=== PATIENT | female | born 1990 | race Caucasian/White ===

== ENCOUNTER 2016-04-26 08:56 | Observation (INO) | payer BC, OTHER ==
[2016-04-26] VITALS (18 sets, daily range): BP systolic 91–117; BP diastolic 54–85; PULSE 82–109; TEMP 36.5–37.7; O2SAT 96–100; Ht 172.7 cm; Wt 57.0 kg
[~2016-04-26] VITALS: Ht 172.7 cm; Wt 57.0 kg
[2016-04-26] MEDS ORDERED: ONDANSETRON INJ 2 MG/ML 2 ML VIAL IV STA (09:15)
[2016-04-26] MEDS ORDERED: SODIUM CHLORIDE 0.9% 1000ML 1,000 ML IV STA (09:15)
[2016-04-26] MEDS ORDERED: HYDROmorphone INJ 1 MG/ML SYR IV STA (09:15)
[2016-04-26 09:28] LABS: BASO % 0.1 %; BASO ABS # 0.01 K/uL (0-0.2); COMPLETE YES; HEMATOCRIT 29.4 % (37-47); IG% 0.2 %; LYMPH ABS # 0.97 K/uL (1.2-3.4); MEAN CELL VOLUME 81.7 fL (80-100); MEAN CORPUSCULAR HEMOGLOBIN 28.6 pg (25-34); MONO % 1.7 %; PLATELET COUNT 196 K/uL (130-400); WHITE BLOOD COUNT 9.68 K/uL (4.8-10.8)
[2016-04-26 09:46] LABS: BUN/CREATININE RATIO 21.3 (10-20); CALCIUM 8.5 mg/dl (8.5-10.1); CREATININE 0.68 mg/dl (0.60-1.20); POTASSIUM 4.1 mmol/L (3.5-5.1)
[2016-04-26 09:53] LABS: PREG INTERNAL NEGATIVE QC NEG CLEAR BACKGROUND; PREG INTERNAL POSITIVE QC POS CONTROL LINE
[2016-04-26 09:59] LABS: URINE APPEARANCE CLOUDY (CLEAR); URINE BILIRUBIN NEG (NEG); URINE COLOR DK YELLOW; URINE EPITHELIAL CELL AUTO >30 /lpf (0-5); URINE NITRITE NEG (NEG); URINE SPECIFIC GRAVITY 1.036 (1.000-1.030); UROBILINOGEN NEG (NEG)
[2016-04-26 10:04] LABS: MANUAL MICROSCOPIC REQUIRED? NO; REVIEW REQ? NO
[2016-04-26] MEDS ORDERED: MoRPHine SULFATE 4 MG/ML 1 ML CARP\\VIAL IV STA (10:33)
[2016-04-26] MEDS ORDERED: LACTATED RINGER'S 1000ML 1,000 ML IV SCH (10:47)
--- NOTE | 2016-04-26 10:52 | DIAGNOSTIC IMAGING REPORT ---
ULTRASOUND CLINICAL HISTORY: Diffuse abdominal pain. COMPARISON STUDY: No previous studies for comparison. TECHNIQUE: Transabdominal and transvaginal sonography of the pelvis was performed. FINDINGS: There is a moderate to large amount of complex fluid within the pelvis and the abdomen. The uterus measures 7.5 x 4.8 x 5 cm. There is complex fluid within the endometrial cavity. No intrauterine gestational sac is identified. The right ovary measures 2.7 x 2 x 2 cm. The left ovary is partially obscured on this exam, likely by clot. There is a 2.7 x 2.2 x 2.8 cm round focus within the left adnexa that is centrally cystic and peripherally echogenic. IMPRESSION: 1. Findings suggestive of a ruptured ectopic , likely within the left adnexa. Moderate to large amount of associated hemoperitoneum within the abdomen and pelvis. 2. Complex fluid within the endometrial cavity which suggests a pseudogestational sac. No intrauterine gestation identified. Findings discussed with Dr. Vizcarra at time of dictation. Electronically signed by: Kendall Wilkes M.D. 04/26/2016 10:50 AM Dictated Date/Time: 04/26/2016 10:44 AM
[2016-04-26] MEDS ORDERED: NEOSTIGMINE METHYLSULFATE 5 MG/5 ML SYR ONE (11:09)
[2016-04-26] MEDS ORDERED: GLYCOPYRROLATE INJ 0.2 MG/ML VIAL ONE (11:09)
[2016-04-26] MEDS ORDERED: ONDANSETRON INJ 2 MG/ML 2 ML VIAL ONE (11:09)
[2016-04-26] MEDS ORDERED: PROPOFOL IV EMULSION 10 MG/ML 20 ML VIAL IV ONE (11:09)
[2016-04-26] MEDS ORDERED: DEXAMETHASONE SOD INJ 4 MG/ML VIAL ONE (11:09)
[2016-04-26] MEDS ORDERED: ROCURONIUM BROMIDE 10 MG/ML 5 ML VIAL ONE (11:09)
[2016-04-26] MEDS ORDERED: MIDAZOLAM HCL 1 MG/ML 2ML VIAL ONE (11:09)
[2016-04-26] MEDS ORDERED: LIDOCAINE HCL 2% 2 ML VIAL (20MG/ML) ONE (11:09)
[2016-04-26] MEDS ORDERED: FENTANYL CITRATE INJ 50 MCG/1 ML 2 ML VIAL ONE ×2 (11:09→11:56)
[2016-04-26] MEDS ORDERED: CEFOXITIN IV 2,000 MG in DEXTROSE 5% 50ML 50 ML IV SCH (11:30)
--- NOTE | 2016-04-26 12:02 | HISTORY & PHYSICAL EXAMINATION ---
DATE OF ADMISSION: 04/26/2016 CHIEF COMPLAINT: Abdominal pain and vomiting. HISTORY OF PRESENT ILLNESS: The patient is a 25-year-old 4, para 2-0-1-2 with an LMP of 03/31/2016. Comes in to the Emergency Department with acute abdominal pain that began around 4:00 p.m. yesterday evening. Her pain continued overnight and she had vomiting early this morning. She ranked her pain at 7/10 on arrival. Her periods have been fairly regular beginning in January when she stopped . They were actively trying for a . She did begin spotting bright red blood yesterday, which was abnormal for her. She denies any recent fevers, chills, chest pain, shortness of breath. In the Emergency Department an ultrasound was completed, which showed blood within the abdomen and around the liver, with a possible ruptured ectopic from the left adnexa. No intrauterine gestational sac is identified. There is a 2.7 x 2.2 x 2.8 cm round focus within the left adnexa that is centrally cystic and peripherally echogenic. Her hCG level came back at 6173. Therefore, the patient will be taken to the operating room for a laparoscopic salpingectomy. Discussed the risks, benefits and alternatives to the procedure, and the patient agreed to proceed with surgery. PAST MEDICAL HISTORY: The patient denies any previous medical history. PAST SURGICAL HISTORY: She had 2 spontaneous vaginal deliveries. Her oldest child is 3-1/2 and her youngest child is 18 months. She had 1 spontaneous miscarriage her third . Last menstrual period is 03/31/2016. Her periods were regular every 28 days. SOCIAL HISTORY: The patient denies tobacco, alcohol or drug use. and lives with her family. ALLERGIES: No known drug allergies. MEDICATIONS: No medications. PHYSICAL EXAMINATION: VITAL SIGNS: Blood pressure is 105/67, heart rate of 98, respiration rate of 18, pulse ox of 100% on room air. GENERAL: The patient is awake, alert and oriented x3. She is in mild distress from the situation and her pain. HEENT: and her pain. HEART: Regular rate and rhythm. LUNGS: Clear to auscultation bilaterally. ABDOMEN: Tender to palpation, left greater than right. No guarding or rebound. Bowel sounds present x4. EXTREMITIES: No clubbing, cyanosis or calf tenderness. LABORATORY DATA: White blood count is 9.68, hemoglobin is 10.3, hematocrit 29.4, platelet count of 196. Sodium 139, potassium 4.1, chloride 105, bicarbonate 21, BUN 15, creatinine 0.68, glucose 139, calcium 8.5, AST 15, ALT 20, alkaline phosphatase 41, lipase of 83. HCG 6173. IMAGING: Pelvic ultrasound showed a moderate to large amount of complex fluid within the pelvis and the abdomen. The uterus measured 7.5 x 4.8 x 5 cm. There is complex fluid within the endometrial cavity. No intrauterine gestational sac is identified. The right ovary measures 2.7 x 2 x 2 cm. Left ovary is partially obscured on this exam, likely by a clot. There is a 2.7 x 2.2 x 2.8 cm round focus within the left adnexa that is centrally cystic and peripherally echogenic. IMPRESSION: 1. Findings suggestive of a ruptured ectopic , likely within the left adnexa, moderate to large amount of associated hemoperitoneum within the abdomen and pelvis. 2. Complex fluid within the endometrial cavity which suggests a pseudogestational sac. No intrauterine gestation identified. ASSESSMENT AND PLAN: The patient is a 25-year-old 4, para 2-0-1-2 at approximately 4 weeks gestation with an LMP of 03/31/2016 with a suspected ectopic . Will proceed with a laparoscopy with a possible unilateral salpingectomy, possible unilateral salpingo-oophorectomy, possible laparotomy. Discussed the risks, benefits and alternatives with the patient and informed consent has been obtained. DEONNA
--- NOTE | 2016-04-26 12:14 | EMERGENCY ROOM VISIT NOTE ---
History Report prepared by Saleem: Pat Finney Under the Supervision of: Dr. Philippe Vizcarra M.D. First contact with patient: 09:06 Chief Complaint: VOMITING Stated Complaint: VOMITING,STOMACH PAIN Nursing Triage Summary: Pt c/o n/v/d and "uterine cramping". Possibility of . History of Present Illness The patient is a 25 year old female who presents to the Emergency Room with complaints of cramping pains to her suprapubic abdomen, which began suddenly yesterday afternoon. Currently, she rates her discomfort as a 7/10, which she states becomes intermittently worse. Since the time of onset, the patient has also felt nauseous, and she vomited several times and passed multiple movements of diarrhea yesterday. She is still feeling nauseous, but she has not had any further episodes of vomiting or diarrhea today. The patient states that she and her were trying to get , but she has not yet followed up with OB , and she has not been taking any fertility medications. Her last menstrual cycle was March 29, which she states was normal for her at that time. She did begin spotting bright red blood yesterday, which is abnormal for her. Patient has been 3 times in the past. She has had two children without complications, and has had one miscarriage at 5 weeks . Patient denies recent fevers, chills, chest pain, shortness of breath, dysuria, hematuria, hematochezia or melena. Source of History: patient Onset: yesterday Position: other (suprapubic) Symptom Intensity: 7/10 Quality: other (cramping) Timing: other (sudden onset) Associated Symptoms: + abdominal pain, + diarrhea, + nausea, + vomiting, No SOB, No chest pain, No chills, No fevers, No hematochezia, No melena Review of Systems See HPI for pertinent positives & negatives. A total of 10 systems reviewed and were otherwise negative. Past Medical & Surgical Medical Problems: (1) Anemia associated with acute blood loss (2) Miscarriage (3) No known allergies Social History Smoking Status: Never Smoker Marital Status: Housing Status: lives with family Occupation Status: unemployed Current/Historical Medications Scheduled PRN Ibuprofen (Motrin), 600 MG PO Q6H PRN for Pain Oxycodone/Acetaminophen 5MG/325MG (Percocet 5MG/325MG), 1 TAB PO Q4H PRN for Pain (pain scale 1-5) Allergies Coded Allergies: No Known Allergies (Verified , 04/26/16) Physical Exam Vital Signs Date Time Temp Pulse Resp B/P Pulse Ox O2 Delivery O2 Flow Rate FiO2 04/26/16 13:38 93/52 04/26/16 13:37 72 17 04/26/16 13:37 72 17 99 04/26/16 13:33 90/53 04/26/16 13:32 69 21 04/26/16 13:32 69 21 99 04/26/16 13:28 100/53 04/26/16 13:27 84 14 98 04/26/16 13:27 84 14 04/26/16 13:23 97/50 04/26/16 13:22 68 17 99 04/26/16 13:22 68 17 04/26/16 13:18 100/53 04/26/16 13:17 70 16 100 04/26/16 13:17 69 16 04/26/16 13:13 98/54 04/26/16 13:12 64 16 100 04/26/16 13:12 64 16 04/26/16 13:08 99/54 04/26/16 13:07 63 17 100 04/26/16 13:07 62 17 04/26/16 13:03 91/51 04/26/16 13:02 62 16 94/52 100 04/26/16 13:02 62 16 04/26/16 12:59 /43 04/26/16 12:57 62 17 04/26/16 12:57 62 17 100 04/26/16 12:53 97/62 04/26/16 12:52 72 18 100 04/26/16 12:52 73 18 04/26/16 12:48 104/51 04/26/16 12:47 71 15 04/26/16 12:47 71 15 100 04/26/16 12:47 36.8 72 16 109/47 100 Mask 10 04/26/16 11:13 98 18 105/67 100 04/26/16 10:49 98 18 105/67 100 Room Air 04/26/16 10:48 91 04/26/16 09:34 82 16 103/66 94 Room Air 1/13/17 08:59 36.5 86 16 82/55 92 Room Air Physical Exam GENERAL: Patient is writing around in pain. Appears uncomfortable. HEAD: Normocephalic atraumatic EYES: Ocular movements intact pupils equal and react to light OROPHARYNX mucous membranes are moist no exudates present no erythema or edema present NECK: Supple no nuchal rigidity CHEST: Good equal expansion LUNGS: Clear and equal to auscultation CARDIAC: Normal S1 and S2 ABDOMEN: Soft nontender no guarding BACK: No CVA tenderness EXTREMITIES: No pain upon palpation normal muscle strength in all groups no clubbing cyanosis or edema SKIN: Pale NEURO: Patient is following commands is answering questions appropriately. Alert and oriented x3 Cranial Nerves 2-12 grossly intact Medical Decision & Procedures ER Provider Diagnostic Interpretation: Bed side FAST US: Positive for free fluid. US results as stated below per my review and radiologist interpretation: ULTRASOUND CLINICAL HISTORY: Diffuse abdominal pain. COMPARISON STUDY: No previous studies for comparison. TECHNIQUE: Transabdominal and transvaginal sonography of the pelvis was performed. FINDINGS: There is a moderate to large amount of complex fluid within the pelvis and the abdomen. The uterus measures 7.5 x 4.8 x 5 cm. There is complex fluid within the endometrial cavity. No intrauterine gestational sac is identified. The right ovary measures 2.7 x 2 x 2 cm. The left ovary is partially obscured on this exam, likely by clot. There is a 2.7 x 2.2 x 2.8 cm round focus within the left adnexa that is centrally cystic and peripherally echogenic. IMPRESSION: 1. Findings suggestive of a ruptured ectopic , likely within the left adnexa. Moderate to large amount of associated hemoperitoneum within the abdomen and pelvis. 2. Complex fluid within the endometrial cavity which suggests a pseudogestational sac. No intrauterine gestation identified. Findings discussed with Dr. Vizcarra at time of dictation. Electronically signed by: Kendall Wilkes M.D. 04/26/2016 10:50 AM Dictated Date/Time: 04/26/2016 10:44 AM ULTRASOUND CLINICAL HISTORY: Diffuse abdominal pain. COMPARISON STUDY: No previous studies for comparison. TECHNIQUE: Transabdominal and transvaginal sonography of the pelvis was performed. FINDINGS: There is a moderate to large amount of complex fluid within the pelvis and the abdomen. The uterus measures 7.5 x 4.8 x 5 cm. There is complex fluid within the endometrial cavity. No intrauterine gestational sac is identified. The right ovary measures 2.7 x 2 x 2 cm. The left ovary is partially obscured on this exam, likely by clot. There is a 2.7 x 2.2 x 2.8 cm round focus within the left adnexa that is centrally cystic and peripherally echogenic. IMPRESSION: 1. Findings suggestive of a ruptured ectopic , likely within the left adnexa. Moderate to large amount of associated hemoperitoneum within the abdomen and pelvis. 2. Complex fluid within the endometrial cavity which suggests a pseudogestational sac. No intrauterine gestation identified. Findings discussed with Dr. Vizcarra at time of dictation. Electronically signed by: Kendall Wilkes M.D. 04/26/2016 10:50 AM Dictated Date/Time: 04/26/2016 10:44 AM Laboratory Results 04/26/16 09:15 Red Blood Count 3.60, Mean Corpuscular Volume 81.7, Mean Corpuscular Hemoglobin 28.6, Mean Corpuscular Hemoglobin Concent 35.0, Mean Platelet Volume 10.0, Neutrophils (%) (Auto) 88.0, Lymphocytes (%) (Auto) 10.0, Monocytes (%) (Auto) 1.7, Eosinophils (%) (Auto) 0.0, Basophils (%) (Auto) 0.1, Neutrophils # (Auto) 8.52, Lymphocytes # (Auto) 0.97, Monocytes # (Auto) 0.16, Eosinophils # (Auto) 0.00, Basophils # (Auto) 0.01 04/26/16 13:03 04/26/16 09:15 Test 04/26/16 09:15 04/26/16 09:35 White Blood Count 9.68 K/uL (4.8-10.8) Red Blood Count 3.60 M/uL (4.2-5.4) Hemoglobin 10.3 g/dL (12.0-16.0) Hematocrit 29.4 % (37-47) Mean Corpuscular Volume 81.7 fL (80-100) Mean Corpuscular Hemoglobin 28.6 pg (25-34) Mean Corpuscular Hemoglobin Concent 35.0 g/dl (32-36) Platelet Count 196 K/uL (130-400) Mean Platelet Volume 10.0 fL (7.4-10.4) Neutrophils (%) (Auto) 88.0 % Lymphocytes (%) (Auto) 10.0 % Monocytes (%) (Auto) 1.7 % Eosinophils (%) (Auto) 0.0 % Basophils (%) (Auto) 0.1 % Neutrophils # (Auto) 8.52 K/uL (1.4-6.5) Lymphocytes # (Auto) 0.97 K/uL (1.2-3.4) Monocytes # (Auto) 0.16 K/uL (0.11-0.59) Eosinophils # (Auto) 0.00 K/uL (0-0.5) Basophils # (Auto) 0.01 K/uL (0-0.2) RDW Standard Deviation 42.3 fL (36.4-46.3) RDW Coefficient of Variation 14.0 % (11.5-14.5) Immature Granulocyte % (Auto) 0.2 % Immature Granulocyte # (Auto) 0.02 K/uL (0.00-0.02) Anion Gap 13.0 mmol/L (3-11) Est Creatinine Clear Calc Drug Dose 112.8 ml/min Estimated GFR () 139.9 Estimated GFR (Non- 120.7 BUN/Creatinine Ratio 21.3 (10-20) Calcium Level 8.5 mg/dl (8.5-10.1) Total Bilirubin 0.4 mg/dl (0.2-1) Direct Bilirubin 0.1 mg/dl (0-0.2) Aspartate Amino Transf (AST/SGOT) 15 U/L (15-37) Alanine Aminotransferase (ALT/SGPT) 20 U/L (12-78) Alkaline Phosphatase 41 U/L (45-117) Total Protein 6.3 gm/dl (6.4-8.2) Albumin 3.5 gm/dl (3.4-5.0) Lipase 83 U/L (73-393) Human Chorionic Gonadotropin, Qual POS (NEG) Human Chorionic Gonadotropin, Quant 6173 mIU/mL Urine Color DK YELLOW Urine Appearance CLOUDY (CLEAR) Urine pH 5.0 (4.5-7.5) Urine Specific [place] 1.036 (1.000-1.030) Urine Protein TRACE (NEG) Urine Glucose (UA) NEG (NEG) Urine Ketones 2+ (NEG) Urine Occult Blood NEG (NEG) Urine Nitrite NEG (NEG) Urine Bilirubin NEG (NEG) Urine Urobilinogen NEG (NEG) Urine Leukocyte Esterase NEG (NEG) Urine WBC (Auto) 1-5 /hpf (0-5) Urine RBC (Auto) 0-4 /hpf (0-4) Urine Hyaline Casts (Auto) 10-30 /lpf (0-5) Urine Epithelial Cells (Auto) >30 /lpf (0-5) Urine Bacteria (Auto) NEG (NEG) Labs reviewed by ED physician. Medications Administered Medications (Trade) Dose Ordered Sig/Nicole Route Start Time Stop Time Status Last Admin Dose Admin Sodium Chloride (Nss 1000ml) 1,000 ml @ 999 mls/hr Q1H1M STAT IV 04/26/16 09:15 04/26/16 10:15 DC 04/26/16 09:28 999 MLS/HR Ondansetron HCl (Zofran Inj) 4 mg NOW STAT IV 04/26/16 09:15 04/26/16 09:17 DC 04/26/16 09:28 4 MG Morphine Sulfate 4 mg 4 mg NOW STAT IV 04/26/16 10:33 04/26/16 10:34 DC 04/26/16 10:33 3 MG Cefoxitin Sodium/ Dextrose (Mefoxin IV/D5 50ml) 60 ml @ 100 mls/hr PREOP@1130 IV 04/26/16 11:30 04/26/16 13:00 DC 04/26/16 11:41 100 MLS/HR Bupivacaine HCl (Marcaine 0.5% MPF Inj) 18 ml ONE ONCE INJ 04/26/16 12:34 04/26/16 12:35 DC 04/26/16 12:34 18 ML Oxycodone/ Acetaminophen (Percocet 5-325MG Tab) 1 tab Q4H PRN PO 04/26/16 12:45 04/27/16 12:44 04/26/16 15:47 1 TAB Meperidine HCl (Demerol Inj) 25 mg STK-MED ONCE .ROUTE 04/26/16 12:53 04/26/16 12:55 DC 04/26/16 12:57 12.5 MG ED Course 0910: Past medical records reviewed. The patient was evaluated in room A12. A complete history and physical examination was performed. 0915: Zofran 4 mg IV, NSS bolus IV and Dilaudid 1 mg IV were ordered. 0950: A Bedside FAST US was done. It was positive for free fluid. Patient will go to official US and OB will be contacted. 1000: Dr. Moreno of OB was contacted and was updated on the patient's status. He will be contacted after the results of the official US return. 103: Dr. Moreno has been updated on the results of the patient's official US. He will be in to evaluate the patient. 1033: Upon reevaluation, the patient was having additional pain. Morphine Sulfate 4 mg IV was ordered. I updated her on the results of her radiology reports and my discussion with Dr. Moreno. He will be in to see her shortly. 1050: I reevaluated the patient at this time and she appeared to be resting more comfortably. Dr. Moreno was now in the room. He will now take her to surgery. Patient verbalized understanding and agreement with this treatment plan. Medical Decision Differential diagnosis: Etiologies such as appendicitis, diverticulitis, PUD, biliary pathology, UTI, pancreatitis, obstruction, mesenteric ischemia, aortic pathology, infections, inflammatory bowel disease, renal colic, as well as others were entertained. This is a 25-year-old female who presents emergency department complaining of severe abdominal pain. The patient has been trying to get . Her urine is positive test. The patient is pale in appearance and has diffuse tenderness on her abdomen. Her hemoglobin is 10.6. Her FAST exam is positive for free fluid. Based on these findings a type and screen was ordered the patient was immediately sent over for an ultrasound. Her beta hCG was found to be 6000. I did discuss the case with both the radiologist as well as the on- call car ferry master who came in to see the patient. The patient was given morphine for pain along with Zofran. Patient and were in agreement with treatment plan. Consults Time Called: [phone], 1030 Consulting Physician: Dr. Moreno - OB Returned Call: [phone], [phone]: Discussed the patient's case. He will be updated once offical US results return. 1033: Updated on patient's official US results. He will be in to see her. 1055: Dr. Moreno was in the room. He will take her for surgery. Impression Primary Impression: Ruptured ectopic Critical Care I have personally spent greater than 30 minutes of critical care time in the direct management of this patient. This includes bedside care, interpretation of diagnostic studies, and testing, discussion with consultants, patient, and family members, and other required patient management activities. This 30 minutes is in excess of all separately billable procedures. Scribe Attestation The scribe's documentation has been prepared under my direction and personally reviewed by me in its entirety. I confirm that the note above accurately reflects all work, treatment, procedures, and medical decision making performed by me. Departure Information Dispostion Being Evaluated By Surgeon (Dr. Moreno) Prescriptions Ibuprofen (Motrin) 600 Mg Tab 600 MG PO Q6H Y for Pain, #30 TAB Prov: Chad Moreno, 04/26/16 Oxycodone/Acetaminophen 5MG/325MG (PERCOCET 5MG/325MG) Tab 1 TAB PO Q4H Y for Pain (pain scale 1-5), #30 TAB PAIN Prov: Chad Moreno, 04/26/16 Referrals Oanh Law C.R.N.P (PCP)
[2016-04-26] MEDS ORDERED: EpHEDrine SULFATE INJ 50 MG/ML AMP IV PRN (12:30)
[2016-04-26] MEDS ORDERED: ONDANSETRON INJ 2 MG/ML 2 ML VIAL IV PRN ×2 (12:30→12:45)
[2016-04-26] MEDS ORDERED: MoRPHine SULFATE 10 MG/ML CARP/VIAL IV PRN (12:30)
[2016-04-26] MEDS ORDERED: ATROPINE SULFATE 0.1 MG/ML 5ML SYR IV PRN (12:30)
[2016-04-26] MEDS ORDERED: FENTANYL CITRATE INJ 50 MCG/1 ML 2 ML VIAL IV PRN (12:30)
[2016-04-26] MEDS ORDERED: BUPIVACAINE 0.5 % 5 MG/1 ML MPF 30ML VIAL INJ ONE (12:34)
--- NOTE | 2016-04-26 12:43 | [facility] Post Operative Brief Note ---
Immediate Operative Summary Operative Date Apr 26, 2016. Pre-Operative Diagnosis Ruptured ectopic Post-Operative Diagnosis Same as preoperative diagnosis, hemoperitoneum Procedure(s) Performed Laparoscopic left salpingectomy Surgeon Dr. Chad Moreno Quality Assurance Advisor Surgeon(s) None Estimated Blood Loss 1950 mL Findings Upon laparoscopic exam there was a large amount of blood within the abdomen and pelvis extending to the liver. 1950 cc clotted blood evacuated from the abdomen. There was an ectopic located in the left tube. A left salpingectomy was performed and the tube with the ectopic was removed from the abdomen. Excellent hemostasis noted at the adnexa. No other pathology noted. The uterus and right ovary and tube were normal. Patient tolerated the procedure well and was sent to recovery with stable vital signs. Fluids (cc crystalloids) 1900 Specimens Permanent specimens A: Left fallopian tube with ectopic Drains Urrutia to gravity Anesthesia General Complication(s) None Disposition Recovery Room / PACU
[2016-04-26] MEDS ORDERED: OXYCODONE/ACETAMINOPHEN 5-325 TAB PO PRN (12:45)
[2016-04-26] MEDS ORDERED: MEPERIDINE HCL 25 MG/ML CARP ONE (12:53)
[2016-04-26] MEDS ORDERED: OXYC-57 PO (12:56)
[2016-04-26] MEDS ORDERED: IBUP600T44 PO (12:56)
--- NOTE | 2016-04-26 13:00 | Discharge Instructions ---
Discharge Instructions Admission Reason for Admission: Vomiting,Stomach Pain Discharge Discharge Diagnosis / Problem: Ruptured left ectopic Discharge Goals Goal(s): Routine recovery after surgery Activity Recommendations Activity Limitations: per Instructions/Follow-up section . Instructions / Follow-Up Instructions / Follow-Up ACTIVITY RECOMMENDATIONS: Activity: * During the first week at home, your activity should be similar to that done at the hospital prior to discharge. Your primary activity is in-house walking interspersed with rest periods. Preparing lunch for yourself is acceptable. You may go up and down stairs. Try to stay up progressively longer periods of time to help regain your strength more quickly. * During the second week at home, activities should include some meal preparation, walking to strengthen abdominal muscles and riding in a car. You may drive a car and make brief shopping trips at the end of the second week at home. * Lifting should not exceed 15-20 pounds during the first 2 weeks after surgery. * Sexual intercourse can usually be resumed about 6 weeks after surgery depending on findings at your post-operative examinations. Bathing: * Showers or baths are permissible. SPECIAL CARE INSTRUCTIONS: The major discomforts related to surgery have now passed and progressive improvement will occur. The tight uncomfortable feeling in the abdominal, pelvic and back area will gradually fade away. Fatigue may take the longest to disappear; your energy level may take several weeks to return to normal. At times you may become frustrated or impatient over not feeling as well or doing as much as you'd like , but this is a normal reaction to surgery and will pass with time. Bowel Care: * Constipation after surgery is very common. Foods that promote bowel activity (bran, fruit, prune juice) should be included in your diet. * A capsule, DIALOSE-PLUS, can be purchased without a prescription and can be taken daily (one or two capsules) to assist in promoting bowel activity. * If you have had vaginal surgery involving your rectum, we will discuss this when discharged from the hospital. Temperature: * Any fever above 100.4 degrees F should be reported to our office at . FOLLOW-UP: Post-Operative Appointments: * Individual instructions will have been given about the timing of your first examination, but this is usually at the end of the second week home. * You will need to call the office at soon after discharge to make the appointment for your post-op check-up if it has not already been scheduled. Within 2 weeks you should be seen. * Additional information regarding activity, sexual intercourse and when to return to work will be given at this appointment. WE WISH YOU A SPEEDY RECOVERY! Current Hospital Diet Patient's current hospital diet: Discharge Diet Recommended Diet: Regular Diet Procedures Procedures Performed: Laparoscopic left salpingectomy Pending Studies Studies pending at discharge: no Medical Emergencies . Who to Call and When: Medical Emergencies: If at any time you feel your situation is an emergency, please call 911 immediately. . Non-Emergent Contact Non-Emergency issues call your: Primary Care Provider, Staff Development Nurse . . "Provider Documentation" section prepared by Chad Moreno. VTE Core Measure Inpt VTE Proph given/why not?: Treatment not indicated
[2016-04-26 13:35] LABS: HEMATOCRIT 17.7 % (37-47)
[2016-04-26] MEDS ORDERED: ACETAMINOPHEN 325 MG TAB PO PRN (13:45)
[2016-04-26] MEDS ORDERED: IV FLUIDS COMPLETED PRN (14:00)
--- NOTE | 2016-04-26 14:38 | Anesthesiology Progress Note ---
Anesthesia Post Op Note Date & Time Apr 26, 2016 at 14:37 Vital Signs Pain Intensity: 0 Vital Signs Past 12 Hours Date Time Temp Pulse Resp B/P Pulse Ox O2 Delivery O2 Flow Rate FiO2 04/26/16 14:31 37.7 04/26/16 14:29 37.7 98 17 100/61 99 04/26/16 14:28 100/61 04/26/16 14:24 87 18 04/26/16 14:24 86 18 100 04/26/16 14:23 103/62 04/26/16 14:22 108/60 04/26/16 14:19 122 17 04/26/16 14:19 119 17 99 04/26/16 14:18 96/62 04/26/16 14:14 88 23 04/26/16 14:14 90 23 100 04/26/16 14:13 90/55 04/26/16 14:12 37.4 82 20 91/54 100 04/26/16 14:09 73 20 98 04/26/16 14:09 74 20 04/26/16 14:08 91/54 04/26/16 14:04 78 16 04/26/16 14:04 78 16 100 04/26/16 14:03 82 18 04/26/16 14:03 83 18 92/59 100 04/26/16 14:02 37.3 87 19 97/55 100 04/26/16 13:58 78 17 04/26/16 13:58 78 17 97/55 100 04/26/16 13:56 37.0 83 21 91/56 100 04/26/16 13:53 93 20 91/56 99 04/26/16 13:53 88 20 04/26/16 13:48 73 17 04/26/16 13:48 74 17 94/54 100 04/26/16 13:43 75 19 04/26/16 13:43 76 19 99 04/26/16 13:42 69 17 04/26/16 13:42 68 17 99 04/26/16 13:38 93/52 04/26/16 13:37 72 17 04/26/16 13:37 72 17 99 04/26/16 13:33 90/53 04/26/16 13:32 69 21 04/26/16 13:32 69 21 99 04/26/16 13:28 100/53 04/26/16 13:27 84 14 98 04/26/16 13:27 84 14 04/26/16 13:23 97/50 04/26/16 13:22 68 17 99 04/26/16 13:22 68 17 04/26/16 13:18 100/53 04/26/16 13:17 70 16 100 04/26/16 13:17 69 16 04/26/16 13:13 98/54 04/26/16 13:12 64 16 100 04/26/16 13:12 64 16 04/26/16 13:08 99/54 04/26/16 13:07 63 17 100 04/26/16 13:07 62 17 04/26/16 13:03 91/51 04/26/16 13:02 62 16 94/52 100 04/26/16 13:02 62 16 04/26/16 12:59 /43 04/26/16 12:57 62 17 04/26/16 12:57 62 17 100 04/26/16 12:53 97/62 04/26/16 12:52 72 18 100 04/26/16 12:52 73 18 04/26/16 12:48 104/51 04/26/16 12:47 71 15 04/26/16 12:47 71 15 100 04/26/16 12:47 36.8 72 16 109/47 100 Mask 10 04/26/16 11:13 98 18 105/67 100 04/26/16 10:49 98 18 105/67 100 Room Air 04/26/16 10:48 91 04/26/16 09:34 82 16 103/66 94 Room Air 04/26/16 08:59 36.5 86 16 82/55 92 Room Air Notes Mental Status: alert / awake / arousable, participated in evaluation Pt Amnestic to Procedure: Yes Nausea / Vomiting: adequately controlled Pain: adequately controlled Airway Patency, RR, SpO2: stable & adequate BP & HR: stable & adequate Hydration State: stable & adequate Anesthetic Complications: no major complications apparent
[2016-04-26] MEDS: OXYCODONE/ACETAMINOPHEN 5-325 TAB PO PRN ×2 (15:47→19:19)
--- NOTE | 2016-04-26 20:20 | OPERATIVE REPORT ---
DATE OF OPERATION: 04/26/2016 PREOPERATIVE DIAGNOSIS: Ruptured ectopic . POSTOPERATIVE DIAGNOSIS: Same with hemoperitoneum. OPERATIVE PROCEDURE: Laparoscopic left salpingectomy. SURGEON: Dr. Moreno. FILLER ROOM ATTENDANT: None. ANESTHESIA: General. ESTIMATED BLOOD LOSS: 1950 mL. FLUIDS: 1900 mL crystalloids. URINE OUTPUT: 200 mL clear yellow urine. SPECIMENS: Left fallopian tube with ectopic . DRAINS: Urrutia to gravity. COMPLICATIONS: None. DISPOSITION: Recovery room. OPERATIVE FINDINGS: Upon laparoscopic exam, there was a large amount of blood within the abdomen and pelvis extending to the liver. 1950 mL of clotted blood evacuated from the abdomen. There was an ectopic located in the left tube. The left salpingectomy was performed and the tube with the ectopic removed from the abdomen. Excellent hemostasis was noted in the adnexa. No other pathology noted. Uterus and right ovary and tube were normal. The patient tolerated the procedure well and was sent to recovery with stable vital signs. OPERATIVE PROCEDURE IN DETAIL: The patient was taken to the operating room where general anesthesia was administered. Once anesthesia was found to be adequate, the patient was placed in dorsal lithotomy position and was prepped and draped in a manner appropriate for the procedure. A weighted speculum was then placed into the vagina and the anterior lip of the cervix was grasped with a single-tooth tenaculum. A ivWatchlka uterine manipulator was then placed within the uterus in an anteverted fashion. The weighted speculum was then removed from the vagina. A sterile Urrutia catheter was then placed within the bladder and remained indwelling throughout the entire procedure. The patient was then ready for the laparoscopic portion of the procedure. Attention was directed towards the umbilicus where 0.5% Marcaine was injected below the umbilicus and an 11 mm skin incision was made in a horizontal fashion subumbilically. A Veress needle was then placed within the abdomen. Normal saline was injected with no fecal content aspirated. Pneumoperitoneum was then created. The Veress needle was then removed and an 11 mm trocar was then placed within the abdomen under direct laparoscopic visualization. Pneumoperitoneum was maintained. A thorough examination of the abdomen and pelvis was then performed. The patient was then placed in Trendelenburg position. The bowel was displaced superiorly away from the pelvis. A second 11 mm skin incision was made 2 fingerbreadths above the pubic symphysis in a horizontal fashion and a second 11 mm trocar was then placed within the abdomen under direct laparoscopic visualization. As much of the clotted blood was removed from the abdomen. Once the pelvis was cleared, attention was directed towards the left adnexa which was noted to have an ectopic within the left fallopian tube. The left tube was then cauterized and transected. Once the left tube and ectopic within it was successfully removed, it was placed within an EndoCatch bag and removed from the abdomen and sent to pathology. Excellent hemostasis was noted at the adnexa where the tube was removed. The abdomen and pelvis was then irrigated with warm saline solution and all fluid was removed from the abdomen. At this point, the procedure was found to be complete. All instruments removed from the abdomen and as much of CO2 gas was allowed to percolate through the open cannulas. The cannulas were then removed. The fascia of both skin incisions were closed with 0 Vicryl suture in a [id number] interrupted fashion. Both skin incisions were then closed with 4-0 Monocryl in a subcuticular fashion. Excellent hemostasis was noted at both incisions. The Hulka uterine manipulator was then removed from the vagina and the Urrutia catheter was removed from the bladder. All sponge and instrument counts were found to be correct x2. The patient tolerated the surgery well and was sent to recovery with stable vital signs. I attest to the content of the Intraoperative Record and any orders documented therein. Any exceptio ns are noted below.
[2016-04-26] MEDS: SODIUM CHLORIDE 0.9% 1000ML 1,000 ML IV SCH (20:21)
[2016-04-26] MEDS: KETOROLAC TROMETHAMINE 30 MG/ML VIAL IV. PRN (22:16)
[2016-04-27 01:00] VITALS: BP 94/58; PULSE 91; TEMP 36.8; O2SAT 97
[2016-04-27 04:25] VITALS: BP 91/50; PULSE 72; TEMP 36.6; O2SAT 99
[2016-04-27] MEDS: SODIUM CHLORIDE 0.9% 1000ML 1,000 ML IV SCH (04:27)
[2016-04-27] MEDS: KETOROLAC TROMETHAMINE 30 MG/ML VIAL IV. PRN (05:15)
[2016-04-27 07:55] VITALS: BP 89/46; PULSE 84; TEMP 36.8; O2SAT 99
[2016-04-27 09:03] LABS: LYMPH % 24.8 %; LYMPH ABS # 1.71 K/uL (1.2-3.4); MEAN CELL VOLUME 81.4 fL (80-100); MEAN CORPUSCULAR HEMOGLOBIN 28.3 pg (25-34); MEAN CORPUSCULAR HGB CONC 34.8 g/dl (32-36); MEAN PLATELET VOLUME 10.2 fL (7.4-10.4); MONO % 5.5 %; NEUT % 69.7 %; PLATELET COUNT 114 K/uL (130-400); RED BLOOD COUNT 3.07 M/uL (4.2-5.4)
[2016-04-27 09:42] LABS: COMPLETE YES
[2016-04-27] MEDS ORDERED: FRRS300 PO (10:28)
--- NOTE | 2016-04-27 10:31 | Discharge Instructions ---
Discharge Instructions Admission Reason for Admission: Vomiting,Stomach Pain Discharge Discharge Diagnosis / Problem: ruptured ectopic Discharge Goals Goal(s): Routine recovery after surgery Activity Recommendations Activity Limitations: as noted below Lifting Limitations: none, no more than 5 pounds Exercise/Sports Limitations: until after follow-up appointment May Resume Sexual Activity: after follow-up appointment Shower/Bathe: no limitations Driving or Machine Use: resume 3 days after discharge . Instructions / Follow-Up Instructions / Follow-Up next week in office for incision check and labs Current Hospital Diet Patient's current hospital diet: Regular Diet Discharge Diet Recommended Diet: Regular Diet Fluid Restriction: None Procedures Procedures Performed: Laparoscopic left salpingectomy Pending Studies Studies pending at discharge: no Medical Emergencies . Who to Call and When: Medical Emergencies: If at any time you feel your situation is an emergency, please call 911 immediately. . Non-Emergent Contact Non-Emergency issues call your: Primary Care Provider . . "Provider Documentation" section prepared by Vincent Reyna. VTE Core Measure Inpt VTE Proph given/why not?: Treatment not indicated
--- NOTE | 2016-04-27 10:32 | Surgery Progress Note ---
Surgery Progress Note Date of Service Apr 27, 2016. Subjective Post OP Day: 1 + ambulating, + diet, + feeling well, + pain controlled Objective Vital Signs: Date Time Temp Pulse Resp B/P Pulse Ox O2 Delivery O2 Flow Rate FiO2 04/27/16 07:55 99 Room Air 04/27/16 07:55 36.8 84 16 89/46 99 Room Air 04/27/16 04:25 36.6 72 16 91/50 99 Room Air 04/27/16 01:00 97 Room Air 04/27/16 01:00 36.8 91 18 94/58 97 Room Air 04/26/16 22:20 36.7 90 16 109/65 98 Room Air 04/26/16 20:15 37.0 109 17 97/59 96 Room Air 04/26/16 19:30 100 Room Air 04/26/16 19:30 36.7 102 18 114/85 100 Room Air 04/26/16 18:45 36.6 102 16 117/75 99 04/26/16 18:30 36.6 86 18 114/73 97 04/26/16 18:12 36.5 100 16 110/68 97 0.0 04/26/16 17:45 36.7 109 18 109/68 98 04/26/16 17:15 36.6 96 16 101/66 99 04/26/16 16:45 36.7 98 16 104/64 99 04/26/16 16:30 36.7 91 16 100/64 99 04/26/16 16:15 37.0 98 20 100/65 99 04/26/16 15:35 37.0 85 18 97/64 100 04/26/16 15:05 36.5 82 18 95/59 100 Room Air 04/26/16 15:05 100 Room Air 04/26/16 15:05 36.5 82 18 95/59 100 04/26/16 14:50 37.5 89 18 96/56 100 Room Air 04/26/16 14:50 100 Room Air 04/26/16 14:50 37.5 89 16 96/56 100 Room Air 04/26/16 14:50 37.5 89 16 96/56 100 04/26/16 14:39 99 17 98 04/26/16 14:39 96 17 04/26/16 14:38 101/51 04/26/16 14:34 85 16 04/26/16 14:34 86 16 100 04/26/16 14:33 100/56 04/26/16 14:31 37.7 04/26/16 14:29 105 19 04/26/16 14:29 37.7 98 17 100/61 99 04/26/16 14:29 105 19 100 04/26/16 14:28 100/61 04/26/16 14:24 87 18 04/26/16 14:24 86 18 100 04/26/16 14:23 103/62 04/26/16 14:22 108/60 04/26/16 14:19 122 17 04/26/16 14:19 119 17 99 04/26/16 14:18 96/62 04/26/16 14:14 88 23 04/26/16 14:14 90 23 100 04/26/16 14:13 90/55 04/26/16 14:12 37.4 82 20 91/54 100 04/26/16 14:09 73 20 98 04/26/16 14:09 74 20 04/26/16 14:08 91/54 04/26/16 14:04 78 16 04/26/16 14:04 78 16 100 04/26/16 14:03 82 18 04/26/16 14:03 83 18 92/59 100 04/26/16 14:02 37.3 87 19 97/55 100 04/26/16 13:58 78 17 04/26/16 13:58 78 17 97/55 100 04/26/16 13:56 37.0 83 21 91/56 100 04/26/16 13:53 93 20 91/56 99 04/26/16 13:53 88 20 04/26/16 13:48 73 17 04/26/16 13:48 74 17 94/54 100 04/26/16 13:43 75 19 04/26/16 13:43 76 19 99 04/26/16 13:42 69 17 04/26/16 13:42 68 17 99 04/26/16 13:38 93/52 04/26/16 13:37 72 17 04/26/16 13:37 72 17 99 04/26/16 13:33 90/53 04/26/16 13:32 69 21 04/26/16 13:32 69 21 99 04/26/16 13:28 100/53 04/26/16 13:27 84 14 98 04/26/16 13:27 84 14 04/26/16 13:23 97/50 04/26/16 13:22 68 17 99 04/26/16 13:22 68 17 04/26/16 13:18 100/53 04/26/16 13:17 70 16 100 04/26/16 13:17 69 16 04/26/16 13:13 98/54 04/26/16 13:12 64 16 100 04/26/16 13:12 64 16 04/26/16 13:08 99/54 04/26/16 13:07 63 17 100 04/26/16 13:07 62 17 04/26/16 13:03 91/51 04/26/16 13:02 62 16 94/52 100 04/26/16 13:02 62 16 04/26/16 12:59 /43 04/26/16 12:57 62 17 04/26/16 12:57 62 17 100 04/26/16 12:53 97/62 04/26/16 12:52 72 18 100 04/26/16 12:52 73 18 04/26/16 12:48 104/51 04/26/16 12:47 71 15 04/26/16 12:47 71 15 100 04/26/16 12:47 36.8 72 16 109/47 100 Mask 10 04/26/16 11:13 98 18 105/67 100 04/26/16 10:49 98 18 105/67 100 Room Air 04/26/16 10:48 91 Abdomen: non tender, non distended, soft Incision(s): clean, dry, intact Extremities: non-tender, normal inspection, no pedal edema Laboratory Results: Results Past 24 Hours Test 04/26/16 13:03 04/27/16 08:32 Range/Units Hemoglobin 6.0 8.7 12.0-16.0 g/dL Hematocrit 17.7 25.0 37-47 % White Blood Count 6.90 4.8-10.8 K/uL Red Blood Count 3.07 4.2-5.4 M/uL Mean Corpuscular Volume 81.4 80-100 fL Mean Corpuscular Hemoglobin 28.3 25-34 pg Mean Corpuscular Hemoglobin Concent 34.8 32-36 g/dl Platelet Count 114 130-400 K/uL Mean Platelet Volume 10.2 7.4-10.4 fL Neutrophils (%) (Auto) 69.7 % Lymphocytes (%) (Auto) 24.8 % Monocytes (%) (Auto) 5.5 % Eosinophils (%) (Auto) 0.0 % Basophils (%) (Auto) 0.0 % Neutrophils # (Auto) 4.81 1.4-6.5 K/uL Lymphocytes # (Auto) 1.71 1.2-3.4 K/uL Monocytes # (Auto) 0.38 0.11-0.59 K/uL Eosinophils # (Auto) 0.00 0-0.5 K/uL Basophils # (Auto) 0.00 0-0.2 K/uL RDW Standard Deviation 45.3 36.4-46.3 fL RDW Coefficient of Variation 15.5 11.5-14.5 % Immature Granulocyte % (Auto) 0.0 % Immature Granulocyte # (Auto) 0.00 0.00-0.02 K/uL Red Blood Cell Morphology Unremarkable Assessment & Plan regular diet
[2016-04-27 10:52] VITALS: BP 89/46; PULSE 84; TEMP 36.8; O2SAT 99
--- NOTE | 2016-05-10 08:19 | Discharge Summary ---
Discharge Summary Admission Date: Apr 26, 2016 at 13:40 Discharge Date: Apr 27, 2016 Principal Diagnosis: Ruptured Ectopic Procedures: Laparoscopic left salpingectomy Medication Reconciliation New Medications: Ferrous Sulfate (Ferrous Sulfate) 325 Mg Tab 1 TAB PO BIDM, #60 2 Refills Ibuprofen (Motrin) 600 Mg Tab 600 MG PO Q6H PRN for Pain, #30 TAB Oxycodone/Acetaminophen 5MG/325MG (Percocet 5MG/325MG) Tab 1 TAB PO Q4H PRN for Pain (pain scale 1-5), #30 TAB PAIN Admission Information HPI (per Admitting provider): HISTORY OF PRESENT ILLNESS: The patient is a 25-year-old 4, para 2-0-1-2 with an LMP of 03/31/2016. Comes in to the Emergency Department with acute abdominal pain that began around 4:00 p.m. yesterday evening. Her pain continued overnight and she had vomiting early this morning. She ranked her pain at 7/10 on arrival. Her periods have been fairly regular beginning in January when she stopped . They were actively trying for a . She did begin spotting bright red blood yesterday, which was abnormal for her. She denies any recent fevers, chills, chest pain, shortness of breath. In the Emergency Department an ultrasound was completed, which showed blood within the abdomen and around the liver, with a possible ruptured ectopic from the left adnexa. No intrauterine gestational sac is identified. There is a 2.7 x 2.2 x 2.8 cm round focus within the left adnexa that is centrally cystic and peripherally echogenic. Her hCG level came back at 6173. Therefore, the patient will be taken to the operating room for a laparoscopic salpingectomy. Discussed the risks, benefits and alternatives to the procedure, and the patient agreed to proceed with surgery. Physical Exam (per Admitting): PHYSICAL EXAMINATION: VITAL SIGNS: Blood pressure is 105/67, heart rate of 98, respiration rate of 18, pulse ox of 100% on room air. GENERAL: The patient is awake, alert and oriented x3. She is in mild distress from the situation and her pain. HEENT: and her pain. HEART: Regular rate and rhythm. LUNGS: Clear to auscultation bilaterally. ABDOMEN: Tender to palpation, left greater than right. No guarding or rebound. Bowel sounds present x4. EXTREMITIES: No clubbing, cyanosis or calf tenderness. Hospital Course Patient underwent a laparoscopic left salpingectomy. It was found that she had about 1900 cc of blood in her abdomen which was suctioned out. The left tube with the ectopic was successfully removed without difficulty. Patient tolerated the surgery well without complications. Immediately after surgery her hemoglobin was found to be 6.0 and therefore she was given 3 units PRBC. Her postoperative recovery was uneventful. Once she received the blood transfusion her repeat hgb was 8.7. She was tolerating a regular diet. Ambulating without difficulty and pain was well controlled. She was discharged on POD # 1 with discharge instructions. Total time spent on discharge = 20 mins This includes examination of the patient, discharge planning, medication reconciliation, and communication with other providers. Discharge Instructions Admission Reason for Admission: Vomiting,Stomach Pain Discharge Discharge Diagnosis / Problem: Ruptured left ectopic Discharge Goals Goal(s): Routine recovery after surgery Activity Recommendations Activity Limitations: per Instructions/Follow-up section . Instructions / Follow-Up Instructions / Follow-Up ACTIVITY RECOMMENDATIONS: Activity: * During the first week at home, your activity should be similar to that done at the hospital prior to discharge. Your primary activity is in-house walking interspersed with rest periods. Preparing lunch for yourself is acceptable. You may go up and down stairs. Try to stay up progressively longer periods of time to help regain your strength more quickly. * During the second week at home, activities should include some meal preparation, walking to strengthen abdominal muscles and riding in a car. You may drive a car and make brief shopping trips at the end of the second week at home. * Lifting should not exceed 15-20 pounds during the first 2 weeks after surgery. * Sexual intercourse can usually be resumed about 6 weeks after surgery depending on findings at your post-operative examinations. Bathing: * Showers or baths are permissible. SPECIAL CARE INSTRUCTIONS: The major discomforts related to surgery have now passed and progressive improvement will occur. The tight uncomfortable feeling in the abdominal, pelvic and back area will gradually fade away. Fatigue may take the longest to disappear; your energy level may take several weeks to return to normal. At times you may become frustrated or impatient over not feeling as well or doing as much as you'd like , but this is a normal reaction to surgery and will pass with time. Bowel Care: * Constipation after surgery is very common. Foods that promote bowel activity (bran, fruit, prune juice) should be included in your diet. * A capsule, DIALOSE-PLUS, can be purchased without a prescription and can be taken daily (one or two capsules) to assist in promoting bowel activity. * If you have had vaginal surgery involving your rectum, we will discuss this when discharged from the hospital. Temperature: * Any fever above 100.4 degrees F should be reported to our office at [phone]. FOLLOW-UP: Post-Operative Appointments: * Individual instructions will have been given about the timing of your first examination, but this is usually at the end of the second week home. * You will need to call the office at soon after discharge to make the appointment for your post-op check-up if it has not already been scheduled. Within 2 weeks you should be seen. * Additional information regarding activity, sexual intercourse and when to return to work will be given at this appointment. WE WISH YOU A SPEEDY RECOVERY! Current Hospital Diet Patient's current hospital diet: Discharge Diet Recommended Diet: Regular Diet Procedures Procedures Performed: Laparoscopic left salpingectomy Pending Studies Studies pending at discharge: no Medical Emergencies . Who to Call and When: Medical Emergencies: If at any time you feel your situation is an emergency, please call 911 immediately. . Non-Emergent Contact Non-Emergency issues call your: Primary Care Provider, Ruching Machine Operator . . "Provider Documentation" section prepared by Chad Moreno. VTE Core Measure Inpt VTE Proph given/why not?: Treatment not indicated
== END 2016-04-27 10:55 | disposition home or self-care (01) ==
LOC: C.EDB 08:58 → C.MS4N 13:40
PROVIDERS: ADMIT Obstetrics & Gynecology; ATTEND Obstetrics & Gynecology
DX: O00.10 Tubal pregnancy without intrauterine pregnancy (principal); K66.1 Hemoperitoneum

== ENCOUNTER 2016-08-08 07:31 | Emergency (ER) | payer BC, OTHER ==
[~2016-08-08] VITALS: Ht 172.7 cm; Wt 52.9 kg
[~2016-08-08 07:31] MED LIST: FRRS300 PO; IBUP600T44 PO; OXYC-57 PO
[2016-08-08 07:33] VITALS: TEMP 36.6; Ht 172.7 cm; Wt 52.9 kg
[2016-08-08] MEDS ORDERED: SODIUM CHLORIDE 0.9% 1000ML 1,000 ML IV STA (07:55)
[2016-08-08] MEDS ORDERED: OPTIRAY 320 IV PRN (08:15)
[2016-08-08 08:30] LABS: URINE APPEARANCE CLOUDY (CLEAR); URINE EPITHELIAL CELL AUTO >30 /lpf (0-5); URINE NITRITE POS (NEG); URINE SPECIFIC GRAVITY 1.029 (1.000-1.030); UROBILINOGEN NEG (NEG)
[2016-08-08 08:32] LABS: MANUAL MICROSCOPIC REQUIRED? NO; REVIEW REQ? YES; URINE COLOR RED
[2016-08-08 08:39] LABS: URINE BILIRUBIN NEG (NEG)
[2016-08-08 08:41] LABS: URINE MUCUS PRESENT (NONE PRSENT)
[2016-08-08 08:42] LABS: BASO % 0.3 %; BASO ABS # 0.01 K/uL (0-0.2); COMPLETE YES; EOS % 1.3 %; LYMPH ABS # 1.24 K/uL (1.2-3.4); MEAN CELL VOLUME 83.7 fL (80-100); MEAN CORPUSCULAR HEMOGLOBIN 28.8 pg (25-34); MEAN CORPUSCULAR HGB CONC 34.4 g/dl (32-36); MEAN PLATELET VOLUME 10.7 fL (7.4-10.4); MONO % 10.4 %; PLATELET COUNT 157 K/uL (130-400); WHITE BLOOD COUNT 3.18 K/uL (4.8-10.8)
[2016-08-08 09:00] LABS: BUN/CREATININE RATIO 17.5 (10-20); CREATININE 0.67 mg/dl (0.60-1.20); POTASSIUM 4.2 mmol/L (3.5-5.1)
[2016-08-08 09:01] LABS: CALCIUM 8.9 mg/dl (8.5-10.1)
[2016-08-08 09:03] LABS: ALB/GLOB RATIO 1.2 (0.9-2)
--- NOTE | 2016-08-08 09:21 | DIAGNOSTIC IMAGING REPORT ---
PELVIC ULTRASOUND, TRANSABDOMINAL AND TRANSVAGINAL HISTORY: EVALUATE OB-APPRENTICE ARCHITECT/VAGINAL BLEEDING COMPARISON: ultrasound 04/26/2016. FINDINGS: Uterus: 7.3 x 4.5 x 5.5 cm. The uterus is retroflexed. Endometrial stripe: 6 mm in thickness. This contains a small amount of complex fluid. Right ovary: Normal in size and demonstrates normal color flow. Left ovary: Normal in size and demonstrates normal color flow. Miscellaneous:Small amount of pelvic free fluid. IMPRESSION: 1. Retroflexed uterus. 2. Small amount of complex fluid within the endometrium suggestive of blood products. 3. Small amount of pelvic free fluid. Electronically signed by: Ifeanyi Beaver M.D. 08/08/2016 9:20 AM Dictated Date/Time: 08/08/2016 9:18 AM
--- NOTE | 2016-08-08 10:50 | DIAGNOSTIC IMAGING REPORT ---
CT SCAN OF THE ABDOMEN AND PELVIS WITH IV CONTRAST CLINICAL HISTORY: Pelvic pain. Vaginal bleeding. COMPARISON STUDY: Pelvic ultrasound dated 08/08/2016. TECHNIQUE: Following the IV administration of 92 cc of Optiray 320, CT scan of the abdomen and pelvis is performed from the lung bases to the proximal femora. Images are reviewed in the axial, sagittal, and coronal planes. IV contrast was administered without complication. Automated dose control exposure was utilized. CT DOSE: 256.05 mGycm FINDINGS: Lung bases: The heart is normal in size and without pericardial effusion. The lung bases are clear. Liver: The contrast-enhanced liver is normal in size, contour, and attenuation. There is no intrahepatic biliary ductal dilatation. The hepatic veins and portal veins are patent. Gallbladder: Unremarkable. Spleen: Normal in size and attenuation. Pancreas: Unremarkable. Adrenal glands: Unremarkable. Kidneys: The contrast enhanced kidneys are normal in size and without hydronephrosis. The kidneys enhance symmetrically. Abdominal vasculature: The abdominal aorta is normal in course and caliber. Bowel: The small bowel and colon are normal in course and caliber. There is moderate colonic fecal retention. The appendix is well-visualized and normal. Peritoneum: There is no intraperitoneal free air or abdominal ascites. Lymphadenopathy: None. Pelvic viscera: The bladder, uterus, and adnexa are normal as visualized. There are bilateral ovarian follicles. Trace free fluid is seen in the cul-de-sac. Skeletal structures: No lytic or blastic lesions are seen. IMPRESSION: 1. There are no acute infectious or inflammatory findings in the abdomen or pelvis. 2. There is trace and likely physiologic free fluid in the cul-de-sac. 3. Moderate constipation. Electronically signed by: Jayro Craig M.D. 08/08/2016 10:49 AM Dictated Date/Time: 08/08/2016 10:45 AM
[2016-08-08 11:13] VITALS: BP 111/71; PULSE 69; O2SAT 97
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
--- NOTE | 2016-08-09 08:02 | DIAGNOSTIC IMAGING REPORT ---
PELVIC ULTRASOUND, TRANSABDOMINAL AND TRANSVAGINAL HISTORY: EVALUATE OB-IMCU SPECIALIST/VAGINAL BLEEDING COMPARISON: ultrasound 04/26/2016. FINDINGS: Uterus: 7.3 x 4.5 x 5.5 cm. The uterus is retroflexed. Endometrial stripe: 6 mm in thickness. This contains a small amount of complex fluid. Right ovary: Normal in size and demonstrates normal color flow. Left ovary: Normal in size and demonstrates normal color flow. Miscellaneous:Small amount of pelvic free fluid. IMPRESSION: 1. Retroflexed uterus. 2. Small amount of complex fluid within the endometrium suggestive of blood products. 3. Small amount of pelvic free fluid. Electronically signed by: Ifeanyi Beaver M.D. 08/08/2016 9:20 AM Dictated Date/Time: 08/08/2016 9:18 AM
== END 2016-08-08 11:20 | disposition home or self-care (01) ==
LOC: C.EDB 07:32
DX: M54.9 Dorsalgia, unspecified (principal); N39.9 Disorder of urinary system, unspecified; Z87.59 Personal history of other complications of pregnancy, childbirth and the puerperium

== ENCOUNTER → 2016-08-27 | Outpatient (CLI) | payer BC | END | disposition home or self-care (01) | LOC: C.LABPVFM 15:32 | PROVIDERS: ATTEND Family Medicine | DX: N93.9 Abnormal uterine and vaginal bleeding, unspecified (principal) ==